=== PATIENT | male | born 1955 | race Caucasian/White ===

== ENCOUNTER 2018-08-05 16:14 | Outpatient (REF) | payer MEDICAID, SELFPAY ==
[2018-08-05 22:27] LABS: Anion Gap 10.8 mmol/L (3-11); BUN 21 mg/dL (7-18); CO2 25.2 mmol/L (21.0-32.0); CREATININE 1.06 mg/dL (0.70-1.30); Calcium 9.4 mg/dL (8.5-10.1); Chloride 104 mmol/L (98-107); Glucose 96 mg/dL (70-100); Potassium 4.4 mmol/L (3.5-5.1); Sodium 140 mmol/L (136-145)
== END 2018-08-05 16:34 ==
LOC: NCHCN 16:14
PROVIDERS: PCP Nurse Practitioner; Visit Provider Family Medicine
DX: C61 Malignant neoplasm of prostate (principal)
CPT/HCPCS: 80048; 84154

== ENCOUNTER 2018-11-25 08:21 | Outpatient (REF) | payer MEDICAID, SELFPAY ==
[2018-11-26 15:05] LABS: PSA, Diagnostic <0.1 ng/ml (0-4.5)
== END 2018-11-25 08:41 ==
LOC: NCHCN 08:21
PROVIDERS: PCP Nurse Practitioner; Visit Provider Family Medicine
DX: C61 Malignant neoplasm of prostate (principal)
CPT/HCPCS: 84153

== ENCOUNTER 2019-03-31 16:45 | Outpatient (REF) | payer SELFPAY ==
[2019-04-02 09:37] LABS: PSA, Diagnostic 0.2 ng/ml (0-4.5)
== END 2019-03-31 17:05 ==
LOC: NCHCN 16:45
PROVIDERS: PCP Nurse Practitioner; Visit Provider Family Medicine
DX: C61 Malignant neoplasm of prostate (principal)
CPT/HCPCS: 84153

== ENCOUNTER 2019-08-19 17:36 | Outpatient (REF) | payer MEDICARE, SELFPAY ==
[2019-08-23 11:21] LABS: PSA, Diagnostic 0.3 ng/ml (0-4.5)
== END 2019-08-19 17:56 ==
LOC: NCHCN 17:36
PROVIDERS: PCP Nurse Practitioner; Visit Provider Internal Medicine
DX: C61 Malignant neoplasm of prostate (principal)
CPT/HCPCS: 84153

== ENCOUNTER 2020-08-31 16:49 | Outpatient (REF) | payer MEDICARE, SELFPAY ==
[2020-09-04 16:17] LABS: PSA, Diagnostic 0.3 ng/ml (0-4.5)
== END 2020-08-31 17:09 ==
LOC: NCHCN 16:49
PROVIDERS: PCP Family Medicine; Visit Provider Family Medicine
DX: C61 Malignant neoplasm of prostate (principal)
CPT/HCPCS: 84153

== ENCOUNTER 2021-03-21 16:17 | Outpatient (REF) | payer MEDICARE, SELFPAY ==
[2021-03-22 18:27] LABS: PSA, Diagnostic 0.4 ng/mL (0.0-4.5)
== END 2021-03-21 16:18 | disposition home or self-care (01) ==
LOC: NCHCN 16:17
PROVIDERS: PCP Family Medicine; Visit Provider Family Medicine
DX: C61 Malignant neoplasm of prostate (principal)
CPT/HCPCS: 84153

== ENCOUNTER 2021-10-08 10:26 | Outpatient (REF) | payer MEDICARE, SELFPAY ==
[2021-10-08 22:29] LABS: PSA, Diagnostic 0.4 ng/mL (0.0-4.5)
== END 2021-10-08 10:27 | disposition home or self-care (01) ==
LOC: NCHCN 10:26
PROVIDERS: PCP Family Medicine; Visit Provider Family Medicine
DX: C61 Malignant neoplasm of prostate (principal)
CPT/HCPCS: 84153

== ENCOUNTER 2022-04-05 14:14 | Outpatient (REF) | payer MEDICARE, SELFPAY ==
[2022-04-05 19:39] LABS: HGB 14.6 g/dL (13.5-17.5); MCH 31.2 pg (27.0-33.0); MCHC 34.8 % (32.0-36.0); MCV 90 fL (80-95); MPV 10.6 fL (8.0-11.0); Platelet Count 235 10^3/uL (130-400); RBC 4.68 10^6/uL (4.36-5.78); RDW 12.2 % (11.8-14.1); RDW-SD 40.3 fL; WBC 5.91 10^3/uL (4.4-10.8)
[2022-04-08 09:28] LABS: PSA, Diagnostic 0.4 ng/mL (<=4.5)
== END 2022-04-05 14:15 | disposition home or self-care (01) ==
LOC: NCHCN 14:14
PROVIDERS: PCP Family Medicine; Visit Provider Family Medicine
DX: K62.5 Hemorrhage of anus and rectum (principal); C61 Malignant neoplasm of prostate
CPT/HCPCS: 85027; 84153

== ENCOUNTER 2022-09-05 10:07 | Outpatient (REF) | payer MEDICARE, SELFPAY ==
[2022-09-05 14:40] LABS: HCT 43.4 % (40.0-50.0); HGB 14.8 g/dL (13.5-17.5); MCH 31.1 pg (27.0-33.0); MCHC 34.1 % (32.0-36.0); MCV 91 fL (80-95); MPV 10.7 fL (8.0-11.0); Platelet Count 213 10^3/uL (130-400); RBC 4.76 10^6/uL (4.36-5.78); RDW 12.4 % (11.8-14.1); RDW-SD 41.9 fL; WBC 7.05 10^3/uL (4.4-10.8)
[2022-09-05 14:53] LABS: C-Reactive Protein 0.17 mg/dL (0.0-0.3)
[2022-09-06 11:09] LABS: Lyme Ab w Rflx to Lyme Confirm Negative (Negative)
== END 2022-09-05 10:08 | disposition home or self-care (01) ==
LOC: NCHCN 10:07
PROVIDERS: PCP Family Medicine; Visit Provider Family Medicine
DX: M25.561 Pain in right knee (principal); M25.461 Effusion, right knee; M17.11 Unilateral primary osteoarthritis, right knee
CPT/HCPCS: 85027; 86140; 86618

== ENCOUNTER 2022-10-07 17:57 | Outpatient (REF) | payer MEDICARE, SELFPAY ==
[2022-10-08 17:47] LABS: PSA, Diagnostic 0.4 ng/mL (<=4.5)
== END 2022-10-07 17:58 | disposition home or self-care (01) ==
LOC: NCHCN 17:57
PROVIDERS: PCP Family Medicine; Visit Provider Family Medicine
DX: C61 Malignant neoplasm of prostate (principal)
CPT/HCPCS: 84153

== ENCOUNTER 2023-04-08 13:27 | Outpatient (REF) | payer MEDICARE, SELFPAY ==
[2023-04-08 22:06] LABS: PSA, Diagnostic 0.3 ng/mL (<=6.5)
== END 2023-04-08 13:28 | disposition home or self-care (01) ==
LOC: NCHCN 13:27
PROVIDERS: PCP Family Medicine; Visit Provider Family Medicine
DX: C61 Malignant neoplasm of prostate (principal)
CPT/HCPCS: 84153

== ENCOUNTER 2023-05-28 23:29 | Outpatient (REF) | payer MEDICARE, SELFPAY ==
[2023-05-28 21:46] LABS: HCT 45.5 % (40.0-50.0); HGB 15.8 g/dL (13.5-17.5); MCHC 34.7 % (32.0-36.0); MCV 89 fL (80-95); MPV 10.8 fL (8.0-11.0); Platelet Count 254 10^3/uL (130-400); RBC 5.09 10^6/uL (4.36-5.78); RDW 12.4 % (11.8-14.1); WBC 7.82 10^3/uL (4.4-10.8)
[2023-05-28 22:33] LABS: ALT 45 U/L (16-63); AST 23 U/L (15-37); Albumin 4.3 g/dL (3.4-5.0); Alkaline Phosphatase 76 U/L (46-116); BUN 22 mg/dL (7-18); Bilirubin, Total 0.3 mg/dL (0.2-1.0); CREATININE 1.1 mg/dL (0.70-1.30); Calcium 9.2 mg/dL (8.5-10.1); Calculated LDL 174 mg/dL (<100); Chloride 101 mmol/L (98-107); Cholesterol 296 mg/dL (<200); Estimated GFR 72.22 (mL/min/1.73m2); Glucose 90 mg/dL (74-106); HDL Cholesterol 52 mg/dL (40-60); Potassium 4.5 mmol/L (3.5-5.1); Sodium 136 mmol/L (136-145); Total Protein 7.3 g/dL (6.4-8.2); Triglyceride 354 mg/dL (<150)
== END 2023-05-28 23:30 | disposition home or self-care (01) ==
LOC: NCHCN 23:29
PROVIDERS: PCP Family Medicine; Visit Provider Family Medicine
DX: E78.5 Hyperlipidemia, unspecified (principal)
CPT/HCPCS: 80053; 80061; 85027

== ENCOUNTER 2023-08-11 15:38 | Outpatient (REF) | payer MEDICARE, SELFPAY ==
--- NOTE | 2023-08-11 14:30 | SKI_PTH ---
PATIENT: Ramsey Bruner LOC: [facility] U#:[id number] AGE/SX: 68/M ROOM: RE08/11/[address]: Cyrus Merrill MD : [id number] BED: DIS: 08/11/2023 SPEC #: [id number] RECD: 08/11/23 18:21 STATUS: CORTNEY REQ #: [id number] SEGUNDO: 08/11/23 14:[address]: Cyrus Merrill DEPT: Surgical Specimen RECD BY: Elba Mcgill ENTERED: 08/11/23 18:22 SP TYPE: SKI OTHR DR: Sarah Pike Tissues: 1 - SKIN BIOPSY(SHAVE/PUNCH) Procedures: SKIN LEVEL 4 Comments: [id number]
== END 2023-08-11 15:39 | disposition home or self-care (01) ==
LOC: LBN 15:38
PROVIDERS: PCP Family Medicine; Visit Provider Otolaryngology
DX: C44.311 Basal cell carcinoma of skin of nose (principal)
CPT/HCPCS: 88305

== ENCOUNTER 2023-10-01 09:01 | Outpatient (REF) | payer MEDICARE, SELFPAY ==
--- OUTSIDE RECORDS SUMMARY | 2023-10-01 09:04 | XMS_ITS | CCD ---
Author Name Unknown Address [address] [place] [address] [id number] Organization Unknown Address [address] [place], [place] [id number] Care Team Providers Care Upkeep Mechanic Name Role Phone PAGE GONZALES Attending Physician [phone] PAGE GONZALES Rounding (Secondary) Physic ute [phone] Vital Signs Unknown or Not Available. Allergies Allergy Code Allergy Type Reaction Status No Known Allergies {Clinical monitoring unavailable} 0 Drug allergy Active Procedures Unknown or Not Available. History of Immunizations Unknown or Not Available. Problems Unknown or Not Available. Results Unknown or Not Available. Active Medications Unknown or Not Available. Medications Administered During Visit Unknown or Not Available. Encounters Encounter Diagnosis Diagnosis Code Start Date Idiopathic osteoarthritis [id number] 2022 Social History Smoking Status Code Start Date End Date Never smoker [id number] Patient Decision Aids Unknown or Not Available. Discharge Instructions You were admitted to [facility] on 08/19/2023 10:28 with a principal diagnosis of Unilateral primary osteoarthritis, right knee You were discharged from [facility] on 08/19/2023 10:29 Should you have any questions prior to discharge, please contact a member of your healthcare team. If you have left the hospital and have any questions, please contact your primary care physician. Chief Complaint and Reason For Visit Unknown or Not Available. Function Status Unknown or Not Available. Plan of Care Unknown or Not Available. Referral/Transition of Care Unknown or Not Available.
[2023-10-01 16:46] LABS: ALT 47 U/L (16-63); AST 23 U/L (15-37); Albumin 4.1 g/dL (3.4-5.0); Alkaline Phosphatase 64 U/L (46-116); Bilirubin, Total 0.6 mg/dL (0.2-1.0); Calculated LDL 96 mg/dL (<100); Cholesterol 179 mg/dL (<200); HDL Cholesterol 66 mg/dL (40-60); Total Protein 7.1 g/dL (6.4-8.2); Triglyceride 85 mg/dL (<150)
[2023-10-01 17:15] LABS: Bilirubin, Direct 0.2 mg/dL (0.0-0.2)
== END 2023-10-01 09:02 | disposition home or self-care (01) ==
LOC: NCHCN 09:01
PROVIDERS: PCP Family Medicine; Visit Provider Family Medicine
DX: E78.5 Hyperlipidemia, unspecified (principal)
CPT/HCPCS: 80061; 80076

== ENCOUNTER 2025-02-04 00:05 | Outpatient (CLI) | payer MEDICARE, SELFPAY ==
--- NOTE | 2025-02-04 | DI.CT_ITS ---
Exam(s) CT NECK W EXAM: CT NECK W CLINICAL HISTORY: R22.1 Localized swelling.mass,lump,neck, Palpable midline.soft, fluid like. TECHNIQUE: Imaging Protocol: Axial computed tomography images with coronal and sagittal reformatted images were created and reviewed CONTRAST MATERIAL: Intravenous: Omnipaque 350 Contrast volume:100 ml contrast COMPARISON: No exams were available for comparison FINDINGS: Parotids: Normal. Submandibular glands: Normal. Thyroid gland: Normal. Lymph nodes: There are scattered lymph nodes seen along the level one to level three all measuring le ss than 8 mm in short axis diameter which are physiologic in nature. Carotids arteries: Mild calcifications at the common carotid bulbs. No significant stenosis or disse ction. Vertebral arteries: No significant stenosis or dissection. Soft tissues: The floor the mouth is unremarkable. The tonsils and adenoids are unremarkable. A mar ker is placed over the palpable abnormality in the midline beneath the level of the mandible and ante rior to the thyroid cartilage. This area corresponds to a circumscribed fatty attenuation area, cons istent with a lipoma. It measures 3.1 cm in length by 1.5 cm AP by 3.1 cm transverse. The epiglottis and vocal cords are within normal limits. Lungs: Images through both lung apices are unremarkable. Bones: Degenerative changes of the cervical spine. Visualized portions of the brain and orbits: Unremarkable. Sinuses and mastoids: Clear. 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 RADIATION DOSE DELIVERED: Total DLP DATA REPOSITORY: All CT scans at this facility are submitted to the National Radiology Data Registry (NRDR) Dose Index Registry (DIR) with the [employer] ([employer]). RADIATION OPTIMIZATION: All CT scans at this facility use at least one of these dose optimization te chniques: automated exposure control; mA and/or kV adjustment per patient size (includes targeted exa ms where dose is matched to clinical indication); or iterative reconstruction.
[2025-02-04 14:29] LABS: CREATININE 1.2 mg/dL (0.70-1.30); Estimated GFR 64.65 (mL/min/1.73m2)
[2025-02-04] MEDS: Omnipaque 350 MG/ML 100 ML BTL IJ (15:18)
[2025-02-04] MEDS: Normal Saline - Diluent 50 ML VIAL IJ (15:21)
== END 2025-02-04 00:25 ==
LOC: DI 00:05
PROVIDERS: PCP Family Medicine; Visit Provider Family Medicine
DX: R22.1 Localized swelling, mass and lump, neck (principal)
CPT/HCPCS: 70491; 82565; J3490

== ENCOUNTER 2025-05-25 09:08 | Outpatient (REF) | payer MEDICARE, SELFPAY ==
[2025-05-26 10:31] LABS: Lyme Ab w Rflx to Lyme Confirm Negative (Negative)
[2025-05-28 21:09] LABS: B. miyamotoi PCR Negative (Negative); Babesia divergens/MO-1 Negative (Negative); Ehrlichia muris eauclairensis Negative (Negative)
== END 2025-05-25 09:09 | disposition home or self-care (01) ==
LOC: NCHCN 09:08
PROVIDERS: PCP Family Medicine; Visit Provider Family Medicine
DX: S80.861A Insect bite (nonvenomous), right lower leg, initial encounter (principal); W57.XXXA Bitten or stung by nonvenomous insect and other nonvenomous arthropods, initial encounter
CPT/HCPCS: 87798; 86618

== ENCOUNTER 2025-07-08 16:08 | Outpatient (REF) | payer MEDICARE, SELFPAY ==
[2025-07-08 21:10] LABS: ESR 4 mm/hr (0-20); HCT 41.1 % (40.0-50.0); HGB 14.1 g/dL (13.5-17.5); MCH 30.8 pg (27.0-33.0); MCHC 34.3 % (32.0-36.0); MCV 90 fL (80-95); MPV 10.9 fL (8.0-11.0); Platelet Count 159 10^3/uL (130-400); RBC 4.58 10^6/uL (4.36-5.78); RDW 12.3 % (11.8-14.1); RDW-SD 40.1 fL; WBC 3.93 10^3/uL (4.4-10.8)
[2025-07-08 21:31] LABS: TSH 1.92 uIU/mL (0.36-3.74)
[2025-07-08 21:47] LABS: C-Reactive Protein < 0.50 mg/dL (<or=0.5)
[2025-07-09 01:46] LABS: ALT 54 U/L (16-63); AST 35 U/L (15-37); Albumin 3.8 g/dL (3.4-5.0); Alkaline Phosphatase 75 U/L (46-116); Anion Gap 11.1 mmol/L (3-11); BUN 18 mg/dL (7-18); Bilirubin, Total 0.4 mg/dL (0.2-1.0); CO2 24.9 mmol/L (21.0-32.0); Calcium 8.3 mg/dL (8.5-10.1); Chloride 101 mmol/L (98-107); Estimated GFR 64.25 (mL/min/1.73m2); Glucose 104 mg/dL (74-106); Potassium 4.0 mmol/L (3.5-5.1); Sodium 137 mmol/L (136-145); Total Protein 6.7 g/dL (6.4-8.2)
[2025-07-11 09:26] LABS: PSA, Diagnostic 0.3 ng/mL (<=6.5)
[2025-07-17 16:23] LABS: Testosterone, Free 3.15 ng/dL (3.28-12.2)
== END 2025-07-08 16:09 | disposition home or self-care (01) ==
LOC: NCHCN 16:08
PROVIDERS: PCP Family Medicine; Visit Provider Family Medicine
DX: Z13.89 Encounter for screening for other disorder (principal); R53.83 Other fatigue
CPT/HCPCS: 80053; 84402; 84403; 85027; 85652; 84153; 84439; 84443; 86140

== ENCOUNTER 2025-09-19 13:00 | Outpatient (CLI) | payer MEDICARE, SELFPAY ==
--- NOTE | 2025-09-19 08:00 | DI.RAD_ITS ---
Exam(s) XR KNEE RT 4V AP,LAT,BOLIVAR,PAT EXAM: XR KNEE RT 4V AP,LAT,BOLIVAR,PAT CLINICAL HISTORY: OA RIGHT KNEE. TECHNIQUE: 2D digital imaging was performed. COMPARISON: No exams were available for comparison FINDINGS: Four views No evidence fracture or prominent joint effusion. There are advanced degenerative changes in the medial and patellofemoral compartments. [id number] narrowing these compartments. There is also chondrocalcinosis in the medial lateral compartments. Bone density normal. No osseous lesions IMPRESSION: Advanced osteoarthritic degenerative changes, most prominent in the medial and patellofemoral compartments of the right knee. DATA REPOSITORY: RADIATION DOSE DELIVERED:
--- NOTE | 2025-09-19 08:00 | DI.RAD_ITS ---
Exam(s) XR HIP RT COMPLETE AP PELVIS EXAM: XR HIP RT COMPLETE AP PELVIS CLINICAL HISTORY: right knee pain. TECHNIQUE: 2D digital imaging was performed. COMPARISON: No exams were available for comparison FINDINGS: Two views No evidence of pelvic nor hip fracture. Facet arthropathy noted at L5-S1 level. There are mild degenerative changes in the hips. Frog-lateral view of the right hip also reveals addition bone density at the femoral head-neck junction consistent with element of cam-type DENNIS. No significant osseous lesions Vascular calcification is noted in the common femoral arteries. IMPRESSION: No fractures. Mild degenerative changes in the hips. Vascular calcification. DATA REPOSITORY: RADIATION DOSE DELIVERED:
== END 2025-09-19 13:01 | disposition home or self-care (01) ==
LOC: DIORS 13:01
PROVIDERS: PCP Family Medicine; Referring Provider Family Medicine; Visit Provider Student in an Organized Health Care Education/Training Program
DX: M17.11 Unilateral primary osteoarthritis, right knee (principal); M25.561 Pain in right knee; M25.851 Other specified joint disorders, right hip; M25.852 Other specified joint disorders, left hip
CPT/HCPCS: 99204; 73502; 73564

== ENCOUNTER 2025-09-28 10:45 | Outpatient (REF) | payer MEDICARE, SELFPAY ==
[2025-09-28 18:04] LABS: ALT 34 U/L (10-49); AST 25 U/L (<34); Albumin 4.4 g/dL (3.2-5.0); Alkaline Phosphatase 67 U/L (46-116); Anion Gap 10.2 mmol/L (3-11); BUN 21 mg/dL (9-23); Bilirubin, Total 0.5 mg/dL (0.2-1.2); CO2 24.8 mmol/L (20.0-31.0); Calcium 9.5 mg/dL (8.3-10.6); Chloride 104 mmol/L (98-107); Cholesterol 205 mg/dL (<200); Glucose 85 mg/dL (74-106); HDL Cholesterol 55 mg/dL (>40); Potassium 4.8 mmol/L (3.5-5.1); Sodium 139 mmol/L (136-145); Total Protein 7.0 g/dL (5.7-8.2)
== END 2025-09-28 10:46 | disposition home or self-care (01) ==
LOC: NCHCN 10:45
PROVIDERS: PCP Family Medicine; Visit Provider Family Medicine
DX: E78.5 Hyperlipidemia, unspecified (principal); I10 Essential (primary) hypertension
CPT/HCPCS: 80053; 80061